=== PATIENT | female | born 1995 | race Caucasian/White ===

== ENCOUNTER 2017-04-14 18:38 | Emergency (ER) | payer MEDICAID ==
[~2017-04-14] VITALS: Ht 160 cm; Wt 84.0 kg
[~2017-04-14 18:38] MED LIST: CALC500T PO; FERR-55 PO; PREN-39 PO
[2017-04-14 19:14] VITALS: Ht 160 cm; Wt 84.0 kg
[2017-04-14] MEDS ORDERED: SODIUM CHLORIDE 0.9% 1L BAG IV* STA (20:08)
[2017-04-14] MEDS ORDERED: ACETAMINOPHEN 500 MG TAB PO STA (20:16)
--- NOTE | 2017-04-14 20:18 | ERD ---
ER Documentation Chief Complaint Chief Complaint pt reports has no movement since 7 pm last night HPI 21-year-old female presents to emergency department for complaints of cough body aches and fever that started 2 days ago. Patient has been having dry cough , does not cough up any phlegm or blood. Patient is vomited shortness of breath or wheezing. Patient also is complaining that she has not felt her baby move since 2 hours ago, patient is approximately 19 weeks , 2 para 1 0. Patient does not have any vaginal bleeding. Patient does complain of some abdominal cramping, 4/10 scale, intermittent pain, denies any pain at this time. Patient denies any hematuria or dysuria. Patient denies any diarrhea or constipation but has vomiting episodes. ROS All systems reviewed and are negative except as per history of present illness. Medications Home Meds Active Scripts Ondansetron (Ondansetron Odt) 4 Mg Tab.rapdis, 4 MG PO Q6H Y for NAUSEA AND/OR VOMITING, #20 TAB Prov:EVER SAENZ NP 04/14/17 Cetirizine Hcl* (Zyrtec*) 10 Mg Capsule, 10 MG PO DAILY, #30 TAB.CHEW Prov:EVER SAENZ NP 04/14/17 Acetaminophen* (Tylophen*) 500 Mg Capsule, 1 CAP PO Q6H Y for PAIN AND OR ELEVATED TEMP, #20 CAP Prov:EVER SAENZ NP 04/14/17 Oseltamivir Phosphate* (Tamiflu*) 75 Mg Capsule, 75 MG PO BID for 5 Days, CAP Prov:EVER SAENZ NP 04/14/17 Reported Medications Calcium Carbonate (Calcium 500) 1 Tab Tablet, 500 TAB PO 06/26/13 Ferrous Sulfate* (Ferrous Sulfate*) 325 Mg Tablet, 325 MG PO DAILY 06/26/13 Vits W-Ca,Fe,Fa(<1MG) ( Vitamins) 1 Tab Tablet, 1 TAB PO DAILY 06/26/13 Allergies Allergies: Coded Allergies: Penicillins (Unverified Allergy, Intermediate, 06/26/13) RASH, ITCHING Uncoded Allergies: SEAFOOD (Adverse Reaction, 06/26/13) RASH, ITCHING PMhx/Soc Medical and Surgical Hx: pt denies Medical Hx, pt denies Surgical Hx Hx Alcohol Use: No Hx Substance Use: No Hx Tobacco Use: No Smoking Status: Never smoker FmHx Family History: No coronary disease, No diabetes, No other Physical Exam Vitals Vital Signs Date Time Temp Pulse Resp B/P Pulse Ox O2 Delivery O2 Flow Rate FiO2 04/14/17 23:05 98.4 105 04/14/17 22:20 98.7 112 20 117/63 99 Room Air 04/14/17 21:59 99.7 04/14/17 19:14 102.7 145 16 114/70 99 Physical Exam GENERAL: The patient is well developed and appropriate for usual state of health, in no apparent distress. HEENT: Atraumatic. Ears: Normal tympanic membrane, no erythema or bulging. No ear canal swelling. No ear discharge. Nose: Erythematous nasal turbinates with clear nasal discharge. Throat: oropharynx erythematous with postnasal drip. No tonsillar swelling or tonsillar exudates. No lymphadenopathy. CHEST: Clear to auscultation bilaterally. There are no rales, wheezes or rhonchi. HEART: Regular rate and rhythm. No murmurs, clicks, rubs or gallops. No S3 or S4. ABDOMEN: Soft, gravid abdomen. Good bowel sounds. No rebound or guarding. No gross peritonitis. No gross organomegaly or masses. No See sign or McBurney point tenderness. BACK: No midline or flank tenderness. EXTREMITIES: Equal pulses bilaterally. There is no peripheral clubbing, cyanosis or edema. No focal swelling or erythema. Full range of motion. Grossly neurovascularly intact. NEURO: Alert and oriented. Cranial nerves 2-12 intact. Motor strength in all 4 extremities with 5/5 strength. Sensation grossly intact. Normal speech and gait. SKIN: There is no apparent rash or petechia. The skin is warm and dry. HEMATOLOGIC AND LYMPHATIC: There is no evidence of excessive bruising or lymphedema. No gross cervical, axillary, or inguinal lymphadenopathy. Result Diagram: 04/14/17201904/14/172019 Results 24 hrs Laboratory Tests Test 04/14/17 20:16 04/14/17 20:20 Urine Color YELLOW Urine Clarity CLEAR Urine pH 8.0 Urine Specific [place] 1.017 Urine Ketones NEGATIVEmg/dL Urine Nitrite NEGATIVEmg/dL Urine Bilirubin NEGATIVEmg/dL Urine Urobilinogen 2+mg/dL Urine Leukocyte Esterase NEGATIVELeu/ul Urine Hemoglobin NEGATIVEmg/dL Urine Glucose NEGATIVEmg/dL Urine Total Protein NEGATIVEmg/dl White Blood Count 9.410^3/ul Red Blood Count 4.0110^6/ul Hemoglobin 12.8g/dl Hematocrit 37.5% Mean Corpuscular Volume 93.5fl Mean Corpuscular Hemoglobin 31.9pg Mean Corpuscular Hemoglobin Concent 34.1g/dl Red Cell Distribution Width 12.9% Platelet Count 66587^3/UL Mean Platelet Volume 10.8fl Neutrophils % 81.8% Lymphocytes % 10.4% Monocytes % 7.0% Eosinophils % 0.0% Basophils % 0.2% Nucleated Red Blood Cells % 0.0/100WBC Neutrophils # 7.710^3/ul Lymphocytes # 1.010^3/ul Monocytes # 0.710^3/ul Eosinophils # 0.010^3/ul Basophils # 0.010^3/ul Nucleated Red Blood Cells # 0.010^3/ul Sodium Level 133mmol/L Potassium Level 3.9mmol/L Chloride Level 98mmol/L Carbon Dioxide Level 23mmol/L Anion Gap 16 Blood Urea Nitrogen 4mg/dl Creatinine 0.56mg/dl Glucose Level 105mg/dl Calcium Level 9.4mg/dl Total Bilirubin 0.8mg/dl Direct Bilirubin 0.00mg/dl Indirect Bilirubin 0.8mg/dl Aspartate Amino Transf (AST/SGOT) 24IU/L Alanine Aminotransferase (ALT/SGPT) 27IU/L Alkaline Phosphatase 88IU/L Total Protein 7.7g/dl Albumin 4.2g/dl Globulin 3.50g/dl Albumin/Globulin Ratio 1.20 Current Medications Medications (Trade) Dose Ordered Sig/Benson Route PRN Reason Start Time Stop Time Status Last Admin Dose Admin Sodium Chloride (NS) 2,600 ml BOLUS OVER 2 HOURS STAT IV* 04/14/17 20:08 04/14/17 20:10 DC 04/14/17 20:19 Acetaminophen (Tylenol Tab) 1,000 mg ONCE STAT PO 04/14/17 20:16 04/14/17 20:18 DC 04/14/17 20:28 PROCEDURE: XR Chest. CLINICAL INDICATION: cough TECHNIQUE: Single frontal view of the chest was obtained COMPARISON: Chest radiograph dated April 14, 2017. FINDINGS: The heart and mediastinum are within normal limits. The lungs are clear. There is no pleural effusion or pneumothorax. The osseous structures are unremarkable. IMPRESSION: 1. No acute cardiopulmonary disease. RPTAT:AAJJ Physician [place] Date Time Electronically viewed and signed by Gissell Villa Physician on 04/14/2017 21:42 QL/ CC: EVER SAENZ NP PROCEDURE: US OB. CLINICAL INDICATION: Size and dates , decreased movement TECHNIQUE: Multiple sonographic images of the pelvis and gravid uterus were obtained. The images were reviewed on a PACS workstation. COMPARISON: No prior studies are available for comparison. FINDINGS: The cervix is closed with a length of 2.2 cm. There is a single viable intrauterine gestation. Cardiac activity is present with 176 beats per minute. There is a breech presentation. The placenta is posterior. There is no evidence for an abruption or placenta previa. MVP = 5.2 cm. Measurements were made in order to determine age. The results are as follows: BPD = 4.4 cm HC = 16.5 cm AC = 13 cm FL = 3.0 cm Estimated gestational age of approximately 19 weeks and 0 days based on ultrasound measurements. Clinical age: 19 weeks and 0 days. The estimated date of delivery is 09/08/17, based on ultrasound measurements. The EFW = 261 g, 37%, based on LMP age. RPTAT: AA IMPRESSION: Single viable intrauterine gestation of approximately 19 weeks and 0 days based on ultrasound measurements. .Nacho Rico MD, Date Time Electronically viewed and signed by .Nacho Rico MD, MD on 04/14/2017 21: 48 .S/ CC: EVER SAENZ NP Microbiology INFLUENZA A & B BY EIA Final INFLU A&B BY EIA INFLUENZA A POSITIVE (Ref Range Neg) INFLUENZA B NEGATIVE (Ref Range Neg) Phoned to EVER SAENZ AT 2049,04/14/17 [facility] Procedures/MDM Medical decision making: Patient symptoms was likely is consistent with influenza. Patient is a viable at 19 weeks, with good heart motion. No symptoms of any acute pneumonia at this time. Chest x-ray does not show any pneumonia at this time. No symptoms of any respiratory distress. Patient appears once hemodynamically stable. No symptoms of any threatened . Patient's fever is controlled at this time. Patient appears once hemodynamically stable. Prescription was given for Tamiflu, Zyrtec, Tylenol, is advised to follow-up with primary care doctor in 2 3 days for reevaluation of symptoms. Patient was advised to return to emergency department for any worsening symptoms. Disposition: Home. Stable Departure Diagnosis: Primary Impression: Influenza Additional Impression: Intrauterine Condition: Stable Patient Instructions: Influenza (Flu) and EVER SAENZ NP Apr 14, 2017 20:18
[2017-04-14 20:36] LABS: ADD UMIC NO; UR ASCORBIC ACID 40 mg/dL (NEGATIVE); UR BILIRUBIN (Dip) NEGATIVE (NEGATIVE); UR BLOOD (Dip) NEGATIVE (NEGATIVE); UR CLARITY CLEAR (CLEAR); UR COLOR YELLOW (YELLOW); UR GLUCOSE (Dip) NEGATIVE (NEGATIVE); UR KETONES (Dip) NEGATIVE (NEGATIVE); UR LEUKOCYTE ESTERASE (Dip) NEGATIVE Leu/ul (NEGATIVE); UR NITRITE (Dip) NEGATIVE (NEGATIVE); UR SPECIFIC GRAVITY (Dip) 1.017 (1.003-1.030); UR TOTAL PROTEIN (Dip) NEGATIVE (NEGATIVE); UR UROBILINOGEN (Dip) 2+ mg/dL (NEGATIVE)
[2017-04-14 20:59] LABS: BASOPHILS % 0.2 % (0.0-2.0); HEMATOCRIT 37.5 % (37.0-47.0); HEMOGLOBIN 12.8 g/dl (12.0-16.0); LYMPHOCYTES % 10.4 % (15.0-51.0); MEAN CORPUSCULAR HEMOGLOBIN 31.9 pg (29.0-33.0); MEAN CORPUSCULAR HGB CONC 34.1 g/dl (32.0-37.0); MEAN CORPUSCULAR VOLUME 93.5 fl (82.0-101.0); MEAN PLATELET VOLUME 10.8 fl (7.4-10.4); MONOCYTE # 0.7 10^3/ul (0.3-0.9); NEUTROPHIL # 7.7 10^3/ul (1.6-7.5); NEUTROPHILS % 81.8 % (39.0-77.0); PLATELET COUNT 191 10^3/UL (140-415); RED BLOOD COUNT 4.01 10^6/ul (4.20-5.40); RED CELL DISTRIBUTION WIDTH 12.9 % (11.5-14.5); WHITE BLOOD COUNT 9.4 10^3/ul (4.8-10.8)
[2017-04-14 21:21] LABS: ALBUMIN 4.2 g/dl (3.3-4.9); ALBUMIN/GLOBULIN RATIO 1.2; BILIRUBIN,INDIRECT 0.8 mg/dl (0-1.1); BILIRUBIN,TOTAL 0.8 mg/dl (0.2-1.3); CALCIUM 9.4 mg/dl (8.4-10.2); CREATININE 0.56 mg/dl (0.44-1.00); POTASSIUM 3.9 mmol/L (3.5-5.1); TOTAL PROTEIN 7.7 g/dl (6.1-8.1)
--- NOTE | 2017-04-14 21:43 | RADRPT ---
PROCEDURE: XR Chest. CLINICAL INDICATION: cough TECHNIQUE: Single frontal view of the chest was obtained COMPARISON: Chest radiograph dated April 14, 2017. FINDINGS: The heart and mediastinum are within normal limits. The lungs are clear. There is no pleural effusion or pneumothorax. The osseous structures are unremarkable. IMPRESSION: 1. No acute cardiopulmonary disease. RPTAT:AAJJ Physician [place] Date Time Electronically viewed and signed by Gissell Villa Physician on 04/14/2017 21:42 QL/
--- NOTE | 2017-04-14 21:48 | RADRPT ---
PROCEDURE: US OB. CLINICAL INDICATION: Size and dates , decreased movement TECHNIQUE: Multiple sonographic images of the pelvis and gravid uterus were obtained. The images were reviewed on a PACS workstation. COMPARISON: No prior studies are available for comparison. FINDINGS: The cervix is closed with a length of 2.2 cm. There is a single viable intrauterine gestation. Cardiac activity is present with 176 beats per min grindstone. There is a breech presentation. The placenta is posterior. There is no evidence for an abruption or placenta previa. MVP = 5.2 cm. Measurements were made in order to determine age. The results are as follows: BPD =4.4 cm HC =16.5 cm AC =13 cm FL =3.0 cm Estimated gestational age of approximately 19 weeks and 0 days based on ultrasound measurements. Clinical age: 19 weeks and 0 days. The estimated date of delivery is 09/08/17, based on ultrasound measurements. The EFW = 261 g, 37%, based on LMP age. RPTAT: AA IMPRESSION: Single viable intrauterine gestation of approximately 19 weeks and 0 days based on ultrasound measu rements. .Nacho Rico MD, Date Time Electronically viewed and signed by .Nacho Rico MD, on 04/14/2017 21:48 .S/
[2017-04-14] MEDS ORDERED: OSLT75C PO (22:02)
[2017-04-14] MEDS ORDERED: ACET500C5 PO (22:02)
[2017-04-14] MEDS ORDERED: CETI10CA PO (22:02)
[2017-04-14 22:20] VITALS: BP 117/63; RESP 20
[2017-04-14] MEDS ORDERED: ONDA4TAB14 PO (22:45)
[2017-04-14 23:05] VITALS: PULSE 105; TEMP 98.4
== END 2017-04-14 23:05 | disposition home or self-care (01) ==
LOC: FTE 18:38
DX: O99.512 Diseases of the respiratory system complicating pregnancy, second trimester (principal); J10.1 Influenza due to other identified influenza virus with other respiratory manifestations; Z3A.19 19 weeks gestation of pregnancy
CPT/HCPCS: 71010; 76805; 80053; 81003; 85025; 86900; 86901; 87040; 87086; 87400; J7030; Z7502; Z7610

== ENCOUNTER 2017-04-22 17:52 | Outpatient (CLI) | END 2017-04-22 18:40 | disposition home or self-care (01) ==

== ENCOUNTER 2017-09-01 10:15 | Inpatient (IN) | END 2017-09-04 16:00 | disposition home or self-care (01) | DRG 766 ==

== ENCOUNTER 2019-02-16 15:29 | Inpatient (IN) | payer MEDICAID ==
[~2019-02-16] VITALS: Ht 165.1 cm; Wt 64.0 kg
[2019-02-16 15:33] VITALS: Ht 165.1 cm; Wt 64.0 kg
[2019-02-16] MEDS ORDERED: MAGNESIUM SULFATE 2 GM/50 ML 50 ML IVPB ONE ×2 (16:30→20:00)
[2019-02-16] MEDS ORDERED: ONDANSETRON 4 MG INJ IV PRN ×2 (17:30→21:30)
[2019-02-16] MEDS ORDERED: ACETAMINOPHEN 325 MG TAB PO PRN (17:30)
[2019-02-16] MEDS ORDERED: METOPROLOL 5 MG INJ IV ONE (18:30)
[2019-02-16] MEDS ORDERED: CIPROFLOXACIN 500 MG TAB PO ONE (19:30)
[2019-02-16] MEDS ORDERED: MAGNESIUM SULFATE 4 GM/100 ML 100 ML IV ONE (21:30)
[2019-02-16] MEDS ORDERED: MAGNESIUM SULFATE 40GM/1000ML 1,000 ML IV SCH (21:30)
[2019-02-17] VITALS (12 sets, daily range): BP systolic 117–142; BP diastolic 63–83; PULSE 54–75; RESP 18–19
[2019-02-17] MEDS: ACETAMINOPHEN 500 MG TAB PO PRN ×3 (01:21→19:43)
[2019-02-17] MEDS ORDERED: LABETALOL 100 MG TAB PO ONE (01:30)
[2019-02-17] MEDS: LACTATED RINGER'S 1,000 ML IV SCH ×3 (02:44→08:22)
[2019-02-17] MEDS: LABETALOL 100 MG TAB PO SCH ×2 (09:15→21:10)
[2019-02-17] MEDS: IBUPROFEN 600 MG TAB PO PRN (14:13)
[2019-02-18] VITALS (7 sets, daily range): BP systolic 121–167; BP diastolic 80–101; PULSE 56–67; RESP 18–20
[2019-02-18] MEDS: IBUPROFEN 600 MG TAB PO PRN ×2 (08:11→23:58)
[2019-02-18] MEDS: LABETALOL 100 MG TAB PO SCH (08:12)
[2019-02-18] MEDS: LABETALOL 200 MG TAB PO SCH (21:08)
[2019-02-19] VITALS: BP 111/66; PULSE 63; RESP 19
[2019-02-19 04:04] VITALS: BP 148/75; PULSE 61; RESP 20
[2019-02-19 08:20] VITALS: BP 122/86; PULSE 61; RESP 18
[2019-02-19] MEDS: LABETALOL 200 MG TAB PO SCH ×2 (09:20→20:56)
[2019-02-19 14:30] VITALS: BP 157/93; PULSE 57
[2019-02-19 15:30] VITALS: BP 148/72; PULSE 52; RESP 18
[2019-02-19 20:00] VITALS: BP 151/80; PULSE 52; RESP 18
[2019-02-20] VITALS: BP 113/64; PULSE 68; RESP 18
[2019-02-20 03:56] VITALS: BP 115/71; PULSE 60; RESP 18
[2019-02-20 08:00] VITALS: BP 140/60; PULSE 51; RESP 18
[2019-02-20] MEDS: LABETALOL 200 MG TAB PO SCH (09:02)
[2019-02-20 09:03] VITALS: BP 158/80; PULSE 52; RESP 18
[2019-02-20] MEDS: IBUPROFEN 600 MG TAB PO PRN (09:18)
[2019-02-20 10:56] VITALS: BP 121/63; PULSE 51; RESP 18
[2019-02-20 15:00] VITALS: BP 135/77; PULSE 59; RESP 18
== END 2019-02-20 18:44 | disposition home or self-care (01) | DRG 776 ==
LOC: FTE 15:29 → L-D 17:10 → INTOOBSV 17:10 → OBSVTOIN 17:10 → EDBEDREQ 19:15 → EDBEDREQSVC 19:15 → OBSVTOIN 21:22 → L-D 22:22 → PP1 02-17 01:58
PROVIDERS: ADMIT Obstetrics & Gynecology; ATTEND Obstetrics & Gynecology
DX: O16.5 Unspecified maternal hypertension, complicating the puerperium (principal)
CPT/HCPCS: 36415; 80053; 81001; 83690; 83735; 84560; 85025; 85610; 85730; 86850; 86900; 86901; 87086; 96365; 96366; 99217; G0378; J3475; J7120